=== PATIENT | female | born 1990 | race Caucasian/White ===

== ENCOUNTER → 2019-03-27 | Outpatient (CLI) | payer OTHER ==
[2019-03-27 10:47] LABS: CREATININE 0.9 mg/dL (0.6-1.0)
--- NOTE | 2019-03-30 09:23 | EEG ---
[facility] [employer] [place] [place] [address] ELECTROENCEPHALOGRAM Name: SARAH CASTELLANOS Room #: [facility]#: [id number] Admission: 03/27/19 Attend Phys: Kristian Ramirez MD Discharge: Date of : 86 Report #: [id number] THIS REPORT FOR: //name// CC: Ramiro Ramirez DATE OF SERVICE: 03/27/2019 This patient is being evaluated of episode of recurrent dizziness. EEG was done by placing the electrode by standard 10:20 system of electrode placement. Both referential and sequential montages were used for recording. Background activity in this patient's EEG is about 9 Hz and 30 microvolt. The patient went to sleep multiple times that is associated with bilaterally symmetrical sleep spindle and vertex sharp waves. Photic stimulation is unremarkable. The patient appeared to be showing what looks like hypnagogic hypersynchrony that appeared to occur during the sleep. IMPRESSION: This patient's EEG appeared to be showing hypnagogic hypersynchrony. However, if the patient is having episodes of dizziness, it might be desirable to do more testing like prolonged EEG monitoring, evaluation by epileptologist or a video monitored EEG, etc. Thank you very much for this referral. <ELECTRONICALLY SIGNED> By: Kristian Ramirez MD 03/30/19 0923 [id number] Kristian Ramirez MD /nt
== END ==
LOC: EDBD 08:49 → LABMALL 08:49
PROVIDERS: Psychiatry & Neurology Neuromuscular Medicine
DX: R42 Dizziness and giddiness (principal); R47.01 Aphasia; R47.81 Slurred speech; W19.XXXA Unspecified fall, initial encounter; Y93.89 Activity, other specified; Y92.89 Other specified places as the place of occurrence of the external cause; Y99.8 Other external cause status

== ENCOUNTER → 2020-07-11 | Outpatient (CLI) | payer OTHER ==
[~2020-07-11] MED LIST: ABILIFY15 MG PO; ADDERALL 30 MG30 MG PO; AMITIZA 24 MCG24 MCG PO; LAMICTAL200 MG PO; VITAMIN B-121000 MC2 SUBLING; VITAMIN D350 MC3 PO
== END ==
LOC: LAB 13:38
PROVIDERS: ATTEND Internal Medicine Gastroenterology
DX: Z01.812 Encounter for preprocedural laboratory examination (principal); Z20.822 Contact with and (suspected) exposure to COVID-19

== ENCOUNTER → 2020-07-15 | Outpatient (CLI) | payer OTHER | END | disposition home or self-care (01) | LOC: GI 07:37 | PROVIDERS: ATTEND Internal Medicine Gastroenterology | DX: K59.02 Outlet dysfunction constipation (principal); K59.00 Constipation, unspecified ==